=== PATIENT | female | born 1945 | race Caucasian/White ===

== ENCOUNTER 2020-12-22 08:10 | Outpatient (REF) | payer MEDICARE, OTHER, SELFPAY ==
--- NOTE | ~2020-12-22 | MM_ITS ---
EXAMINATION: MM SCREENING DIGITAL BREAST TOMOSYNTHESIS, BILATERAL CLINICAL INFORMATION: Screening. Asymptomatic. The lifetime risk of breast cancer based on the Tyrer-Cuzick Model is 2%. COMPARISON: Mammography: 03/18/2014. TECHNIQUE: Digital breast tomosynthesis is performed in both the craniocaudal and mediolateral oblique views along with computer-aided detection (CAD). Synthesized 2D images are generated from the tomosynthesis. Additional exaggerated right CC view is provided. FINDINGS: The breasts are heterogeneously dense, which may obscure small masses (ACR BI-RADS breast composition Category c). Parenchymal pattern is similar to prior study. There is no interval mass or architectural abnormality. The axilla and skin contours are unremarkable. There are scattered bilateral benign round calcifications including grouped benign round calcifications again seen retroareolar right breast. There are interval increased regional linear calcifications anterior upper outer left breast, suspect early ductal secretory. Patient will be recalled to further characterize with magnification views. MM/MM tomosynthesis screening BI IMPRESSION: 1. Left: Regional linear calcifications anterior upper outer quadrant, likely benign early ductal secretory. 2. Right: No mammographic evidence of malignancy. ASSESSMENT: BI-RADS 0: Incomplete - Need Additional Imaging Evaluation RECOMMENDATION: 1. Additional views of the left breast (magnification CC, magnification ML). 2. Radiology department staff will contact the patient for additional imaging. This patient's information was entered into a reminder system with a target due date for their next mammogram.
--- NOTE | ~2020-12-22 | MM_ITS ---
EXAMINATION: BONE DENSITOMETRY CLINICAL INDICATION: Screening for osteoporosis. COMPARISON: Baseline BD dated 03/18/2014. TECHNIQUE: Using a VividCortex DXA System (software version: 13.1) manufactured by [employer], dual-energy x-ray absorptiometry was performed of the lumbar spine and left hip. The images are of good technical quality. Summary results are attached. FINDINGS: AP SPINE L1-L2 (excluding L3 and L4): The data of L1-L4 has been changed to exclude the L3 and L4 vertebral bodies, because degenerative sclerosis at these levels may cause overestimation of lumbar spine density. Current: BMD 0.956 g/cm2, Z-score 0.2, T-score -1.7, osteopenia, 4.9% decrease from baseline (<5% change is not significant). Baseline: BMD 1.005 g/cm2. LEFT FEMUR, NECK: Current: BMD 0.759 g/cm2, Z-score 0.1, T-score -2.0, osteopenia. Baseline: BMD 0.805 g/cm2. LEFT FEMUR, TOTAL: Current: BMD 0.785 g/cm2, Z-score 0.2, T-score -1.8, osteopenia, 9.8% decrease from baseline (<5% change is not significant). Baseline: BMD 0.870 g/cm2. IDENTIFIED RISK FACTORS: Menopause, tobacco use (current smoker), history of fracture (adult). HISTORY OF FRACTURE: Wrist. MEDICATIONS: Calcium, vitamin D. MM/XR DEXA axial skeleton IMPRESSION: 1. DIAGNOSIS: Osteopenia based on the lowest T-score value of -2.0 in the femoral neck applying World Health Organization criteria. 2. 10-YEAR FRACTURE RISK PREDICTION, FRAX: Major osteoporotic fracture (clinical spine, forearm, hip or shoulder) 21.8%. Hip fracture 8.4%. 3. Treatment Recommendations: NOF guidelines recommend consideration for treatment in postmenopausal women and men age 50 and older presenting with the following: -A hip or vertebral (clinical or morphometric) fracture. -T-score less than or equal to -2.5 at the femoral neck or spine after appropriate evaluation to exclude secondary causes. -Low bone mass at the hip or spine and a 10-year fracture probability by FRAX of greater than or equal to 3% for hip fracture or greater than or equal to 20% for major osteoporotic fracture based on the [place] adapted WHO algorithm. 4. Other Recommendations: All treatment decisions require clinical judgment and consideration of individual patient factors, including patient preferences, comorbidities, previous drug use, risk factors not captured in the FRAX model (e.g. frailty, falls, vitamin D deficiency, increased bone turnover, interval significant decline in bone density) and possible under or overestimation of fracture risk by FRAX. Additional medical evaluation for secondary cause of low bone mineral density may be appropriate. FUTURE SCAN RECOMMENDATION: People with diagnosed cases of osteoporosis or at high risk for fracture should have regular bone mineral density tests. For patients eligible for Medicare, routine testing is allowed once every 2 years. The testing frequency can be increased to one year for patients who have rapidly progressing disease, those who are receiving or discontinuing medical therapy to restore bone mass, or have additional risk factors.
== END 2020-12-22 08:11 | disposition home or self-care (01) ==
LOC: HO.MAMMO 08:10
PROVIDERS: PCP Nurse Practitioner Family; Visit Provider Nurse Practitioner Family
DX: Z12.31 Encounter for screening mammogram for malignant neoplasm of breast (principal); Z13.820 Encounter for screening for osteoporosis; M85.80 Other specified disorders of bone density and structure, unspecified site; Z78.0 Asymptomatic menopausal state; F17.200 Nicotine dependence, unspecified, uncomplicated; Z87.81 Personal history of (healed) traumatic fracture; Z79.899 Other long term (current) drug therapy
CPT/HCPCS: 77063; 77067; 77080

== ENCOUNTER 2020-12-28 14:47 | Outpatient (REF) | payer MEDICARE, OTHER, SELFPAY ==
--- NOTE | ~2020-12-28 | MM_ITS ---
EXAMINATION: MM DIAGNOSTIC DIGITAL MAMMOGRAPHY, LEFT CLINICAL INFORMATION: Recall from screening for increased regional calcifications anterior upper outer left breast, possibly ductal secretory. COMPARISON: Mammography: 12/22/2020, 03/18/2014 TECHNIQUE: Digital mammography is performed in the following views: Magnification CC x2, magnification ML x2. FINDINGS: The breasts are heterogeneously dense, which may obscure small masses (ACR BI-RADS breast composition Category c). The additional views confirm scattered benign ductal secretory calcifications in the anterior upper outer left breast. There are other benign coarse round calcifications. No suspicious calcifications. Results are discussed with the patient at time of visit. MM/MM added views LT IMPRESSION: The additional views confirm incidental benign ductal secretory calcifications anterior upper outer left breast. ASSESSMENT: BI-RADS 2: Benign RECOMMENDATION: Routine annual mammography screening. This patient's information was entered into a reminder system with a target due date for their next mammogram.
== END 2020-12-28 14:48 | disposition home or self-care (01) ==
LOC: HO.MAMMO 14:47
PROVIDERS: Visit Provider Nurse Practitioner Family
DX: R92.1 Mammographic calcification found on diagnostic imaging of breast (principal)
CPT/HCPCS: 77065

== ENCOUNTER 2022-03-18 22:17 | Inpatient (IN) | payer MEDICARE, OTHER, SELFPAY ==
--- NOTE | ~2022-03-18 | XR_ITS ---
EXAMINATION: XR CHEST CLINICAL INFORMATION: Shortness of breath COMPARISON: Chest radiograph 01/31/2012 chest CTA 02/02/2012 TECHNIQUE: Frontal view of the chest was obtained. FINDINGS: Lungs are hyperinflated compatible with COPD. Bibasilar scarring/atelectasis is present. No gross consolidations. Heart size normal. No evidence of CHF. XR/XR chest 1V IMPRESSION: COPD. No acute intrathoracic disease.
[2022-03-18 22:19] VITALS: BP 176/92; BP 180/100; PULSE 120; RESP 35; O2SAT 80; O2SAT 92; BMI 23.8
--- NOTE | 2022-03-18 22:19 | ECG_ITS ---
Test Reason : SOB Blood Pressure : / mmHG Vent. Rate : 112 BPM Atrial Rate : 112 BPM P-R Int : 160 ms QRS Dur : 074 ms QT Int : 320 ms P-R-T Axes : 086 078 079 degrees QTc Int : 436 ms Sinus tachycardia Nonspecific ST abnormality Abnormal ECG When compared with ECG of 31-JAN-2012 17:10, No significant change was found Referred By: Frances Caban Electronically Signed By:Chip Norris
--- NOTE | 2022-03-18 22:26 | ED_ITS ---
HPI - SOB/Dyspnea General Chief Complaint: Dyspnea Stated Complaint: SOB Time Seen by Provider: 03/18/22 22:19 Source: patient and EMS Mode of arrival: EMS History of Present Illness HPI Narrative: 76-year-old female not known to this emergency room and does not provide majority of the history due to shortness of breath, EMS states that they were called for acute onset of shortness of breath and patient has a positive history of COPD. EMS states that they administered 2 albuterol, 125 mg of steroids, 4 mg Mag, 1 Atrovent EN route to the hospital while placing the patient on CPAP. Patient states that she feels better now than she did before. Related Data Home Medications Medication Instructions Recorded Confirmed budesonide 0.5 mg/2 mL suspension 1 vial inhalation BID 03/19/22 03/19/22 for nebulization budesonide-formoterol HFA 80 inhalation 03/19/22 mcg-4.5 mcg/actuation aerosol inhaler (Symbicort) chlorhexidine gluconate 0.12 % PO 03/19/22 mouthwash estradiol 0.01% (0.1 mg/gram) g vaginal 2XW 03/19/22 vaginal cream hydrocodone 5 mg-acetaminophen 325 1 tab PO Q6H PRN pain 03/19/22 03/19/22 mg tablet levalbuterol HCl 1.25 mg/0.5 mL 1 vial inhalation Q4-6H PRN 03/19/22 03/19/22 solution for nebulization Shortness Of Breath Or Wheezing multivitamin 03/19/22 umeclidinium 62.5 mcg/actuation 1 puff inhalation DAILY 03/19/22 03/19/22 blister powder for inhalation (Incruse Ellipta) Allergies Allergy/AdvReac Type Severity Reaction Status Date / Time NSAIDS (Non-Steroidal Allergy Intermediate ANGIOEDEMA; Verified 03/19/22 01:00 Anti-Inflamma DIARRHEA [NSAIDS] pollen extracts [POLLEN] Allergy Intermediate WATERY Verified 03/19/22 01:00 ITCHY EYES, NASAL CONGESTION ibuprofen Allergy Unknown Redness of Verified 03/19/22 01:00 Skin naproxen Allergy Unknown heart Verified 05/21/19 00:00 palpations Review of Systems Review of Systems: Pertinent positives and negatives as stated in HPI remaining ROS pending patient improvement. PMFSH Past Medical History Source: nursing notes reviewed Social History Social History Alcohol intake: current Alcohol intake frequency: holidays/special occasions only Alcohol type: wine Smoked in Last 30 Days: Yes Use of substances other than those prescribed or required for medical reasons: No Advance Directives: No Physical Exam Vital Signs: Vital Signs: Last Vital Signs Temp 97.9 F 03/19/22 01:57 Pulse 109 H 03/19/22 01:57 Resp 21 H 03/19/22 01:57 BP 113/69 03/19/22 01:57 Pulse Ox 96 03/19/22 01:57 O2 Del Method 03/19/22 01:57 O2 Flow Rate 3 03/19/22 01:57 BMI result Body Mass Index 23.8 VITAL SIGNS: Reviewed. GENERAL: Well developed, well nourished, in no acute distress. HEAD: Normocephalic/atraumatic, EYES: PERRLA, EOMI EARS: Ext canals without abnormality NOSE: Nares patent bilateral OROPHARYNX: no oral lesions noted, posterior pharynx clear NECK: Supple, no adenopathy LUNGS: Good inspiratory effort although decreased throughout with minimal expiratory wheeze, tachypnea is present as well as retractions and increased work of breathing. SpO2<92> BiPAP CARDIOVASCULAR: Regular rate and rhythm without noted murmurs, no JVD or lower extremity edema. ABDOMEN: Soft, non-tender, non-distended with bowel sounds. MUSCULOSKELETAL: No tenderness, deformities, or effusions noted on gross ins pection. EXTREMITIES: No cyanosis, clubbing or edema. SKIN: Inspection of the skin reveals no rashes NEUROLOGIC: Alert and oriented x 3. Strength and sensation to light touch were grossly intact x 4. Course Course Course Narrative: 0047: On re-evaluation VBG is demonstrated to show resolution acidosis, although pCO2 is noted to be somewhat increased however patient has received both fentanyl as well as Versed and respiratory rate is significantly improved as well as oxygenation. I have talked to the respiratory therapist who will begin titration off of BiPAP. Reevaluation(s) Reevaluation #1: Respiratory therapist comes to tell me that patient is telling her that what she experienced was in a allergic reaction to Advil that she took despite having a history of allergy to NSAIDs in the past. It is unclear why the patient decided to take the Advil knowing that she was allergic to it, she has significantly improved and I will order 25 mg of Benadryl for the patient as well. Time: 00:59 Reevaluation #2: Review of repeat VBG shows complete resolution improvement of pH as well as pCO2. Patient is oxygenating well on nasal cannula, remains mildly tachypneic and is significantly improved after Benadryl. Time: 02:26 Reevaluation #3: On re-evaluation, patient is still tachypneic, able to complete sentences at this time but noted to become short of breath. She is oxygenating well on nasal cannula and still has residual expiratory wheeze. There is no evidence of angioedema. Time: 02:30 Additional Reevaluation(s): 0245: I discussed the case with the inpatient hospitalist who accepts a dmission. Medication reconciliation has been completed. Medications Administered Discontinued Medications Generic Name Dose Route Start Last Admin Trade Name Freq PRN Reason Stop Dose Admin Albuterol Sulfate 7.5 mg/ 0 mg 03/18/22 22:19 03/18/22 22:43 Albuterol/Ipratropium 3 ml INHALE 03/18/22 22:20 10 each ONCE ONE Administration Albuterol Sulfate 7.5 mg/ 0 mg 03/18/22 22:48 03/18/22 23:01 Albuterol/Ipratropium 3 ml INHALE 03/18/22 22:49 10 each ONCE ONE Administration Diphenhydramine HCl 25 mg 03/19/22 00:58 03/19/22 01:05 Diphenhydramine Hcl 50 Mg/Ml Vial IVPUSH 03/19/22 00:59 25 mg ONCE ONE Administration Fentanyl 25 mcg 03/18/22 22:28 03/18/22 22:31 Fentanyl Citrate/Pf 100 Mcg/2 Ml Vial IVPUSH 03/18/22 22:29 25 mcg ONCE ONE Administration Protocol Piperacillin Sod/Tazobactam 50 mls @ 100 mls/hr 03/19/22 00:06 03/19/22 01:32 Sod 3.375 gm/ Sodium Chloride IV 03/19/22 00:35 Infused ONCE ONE Infusion Midazolam HCl 0.5 mg 03/18/22 22:48 03/18/22 23:04 Midazolam Hcl/Pf 2 Mg/2 Ml Vial IVPUSH 03/18/22 22:49 0.5 mg ONCE ONE Administration Medical Decision Making Medical Decision Making MDM Narrative: 76-year-old female with history and clinical presentation of acute respiratory failure and has communicated that there has been some improvement but otherwise will continue to provide respiratory support with 10 mg DuoNeb, BiPAP as well as basic lab work. Differential Diagnosis Acute respiratory failure secondary to viral infection and will rule out etiology of pneumonia/COPD. Admission/Observation Consideration of admission/observation: Escalation of care including admission/observation considered Will repeat VBG, oxygenation as well as respiratory rate have significantly improved and viral testing is otherwise negative. Although there is a noted leukocytosis this is likely reflective of the steroids the patient received EN route to the hospital. She is otherwise afebrile and findings are consistent with COPD. Lab Data Result Diagrams: 03/18/22 22:35 03/18/22 22:35 Labs: Lab Results 03/18/22 03/18/22 03/18/22 Range/Units 22:35 22:35 22:35 WBC 16.1 H (4.8-10.8) X10*3/uL RBC 4.66 (4.20-5.50) X10*6/uL Hgb 14.2 (12.0-16.0) g/dl Hct 42.9 (37.0-47.0) % MCV 92.1 (80.0-98.0) fL MCH 30.5 (27.0-33.0) pg MCHC 33.1 (31.0-35.0) g/dl RDW 14.1 (11.0-16.0) % Plt Count 321 (160-400) X10*3/uL MPV 10.0 (9.4-12.3) fL Immature Gran % (Auto) 0.4 (0.0-0.4) % Neut % (Auto) 58.8 (45-73) % Lymph % (Auto) 31.1 (20-40) % [place] % (Auto) 6.6 (2-11) % Eos % (Auto) 2.8 (0-4) % Baso % (Auto) 0.3 (0-2) % Lymph # (Auto) 5.0 H (1.2-4.9) X10*3/uL [place] # (Auto) 1.1 (0.1-1.2) X10*3/uL Eos # (Auto) 0.5 H (0.0-0.4) X10*3/uL Baso # (Auto) 0.1 (0.0-0.2) X10*3/uL Abs Immat Gran (auto) 0.06 H (0.00-0.03) X10*3/uL Absolute Neuts (auto) 9.5 H (2.0-8.3) x10*3/uL Absolute Nucleated RBC 0.000 (0.0-0.012) X10*3/uL Nucleated RBC % (auto) 0.0 (0.0-0.2) /100WBC Smear Tech's Comments VERIFIED PT 10.9 (10.0-13.1) SEC INR 1.0 (0.9-1.1) VBG pH (7.32-7.43) VBG pCO2 mmHg VBG pO2 mmHg VBG HCO3 (22-26) mmol/L VBG O2 Saturation % VBG Base Excess mmol/L Sodium 141 (135-145) mmol/L Potassium 4.4 (3.3-5.1) mmol/L Chloride 101 (96-108) mmol/L Carbon Dioxide 30 H (22-29) mmol/L Anion Gap 14 (12-20) BUN 17 H (9-16) mg/dL Creatinine 0.68 (0.5-1.4) mg/dL Estim Creat Clear Calc 54.7 Estimated GFR > 60 Random Glucose 205 H (60-115) mg/dL Lactic Acid (0.5-2.0) mmol/L Calcium 9.5 (8.4-10.2) mg/dL Total Bilirubin 0.4 (0.0-1.0) mg/dL AST 25 (5-31) U/L ALT 19 (0-31) U/L Alkaline Phosphatase 54 (39-117) U/L Troponin I High Sens (<3.5-17.0) ng/L C-Reactive Protein 0.17 (< or = 0.50) mg/dL Total Protein 6.5 (6.5-8.0) g/dL Albumin 4.1 (3.5-5.0) g/dL Procalcitonin ng/mL Influenza Type A (PCR) (Negative) Influenza Type B (PCR) (Negative) RSV RNA Qual (PCR) (Negative) SARS-CoV-2 RNA (RT-PCR) (Negative) 03/18/22 03/18/22 03/18/22 Range/Units 22:35 22:35 22:35 WBC (4.8-10.8) X10*3/uL RBC (4.20-5.50) X10*6/uL Hgb (12.0-16.0) g/dl Hct (37.0-47.0) % MCV (80.0-98.0) fL MCH (27.0-33.0) pg MCHC (31.0-35.0) g/dl RDW (11.0-16.0) % Plt Count (160-400) X10*3/uL MPV (9.4-12.3) fL Immature Gran % (Auto) (0.0-0.4) % Neut % (Auto) (45-73) % Lymph % (Auto) (20-40) % [place] % (Auto) (2-11) % Eos % (Auto) (0-4) % Baso % (Auto) (0-2) % Lymph # (Auto) (1.2-4.9) X10*3/uL [place] # (Auto) (0.1-1.2) X10*3/uL Eos # (Auto) (0.0-0.4) X10*3/uL Baso # (Auto) (0.0-0.2) X10*3/uL Abs Immat Gran (auto) (0.00-0.03) X10*3/uL Absolute Neuts (auto) (2.0-8.3) x10*3/uL Absolute Nucleated RBC (0.0-0.012) X10*3/uL Nucleated RBC % (auto) (0.0-0.2) /100WBC Smear Tech's Comments PT (10.0-13.1) SEC INR (0.9-1.1) VBG pH (7.32-7.43) VBG pCO2 mmHg VBG pO2 mmHg VBG HCO3 (22-26) mmol/L VBG O2 Saturation % VBG Base Excess mmol/L Sodium (135-145) mmol/L Potassium (3.3-5.1) mmol/L Chloride (96-108) mmol/L Carbon Dioxide (22-29) mmol/L Anion Gap (12-20) BUN (9-16) mg/dL Creatinine (0.5-1.4) mg/dL Estim Creat Clear Calc Estimated GFR Random Glucose (60-115) mg/dL Lactic Acid 1.0 (0.5-2.0) mmol/L Calcium (8.4-10.2) mg/dL Total Bilirubin (0.0-1.0) mg/dL AST (5-31) U/L ALT (0-31) U/L Alkaline Phosphatase (39-117) U/L Troponin I High Sens < 3.5 (<3.5-17.0) ng/L C-Reactive Protein (< or = 0.50) mg/dL Total Protein (6.5-8.0) g/dL Albumin (3.5-5.0) g/dL Procalcitonin 0.03 ng/mL Influenza Type A (PCR) (Negative) Influenza Type B (PCR) (Negative) RSV RNA Qual (PCR) (Negative) SARS-CoV-2 RNA (RT-PCR) (Negative) 03/18/22 03/18/22 03/19/22 Range/Units 22:36 22:43 00:12 WBC (4.8-10.8) X10*3/uL RBC (4.20-5.50) X10*6/uL Hgb (12.0-16.0) g/dl Hct (37.0-47.0) % MCV (80.0-98.0) fL MCH (27.0-33.0) pg MCHC (31.0-35.0) g/dl RDW (11.0-16.0) % Plt Count (160-400) X10*3/uL MPV (9.4-12.3) fL Immature Gran % (Auto) (0.0-0.4) % Neut % (Auto) (45-73) % Lymph % (Auto) (20-40) % [place] % (Auto) (2-11) % Eos % (Auto) (0-4) % Baso % (Auto) (0-2) % Lymph # (Auto) (1.2-4.9) X10*3/uL [place] # (Auto) (0.1-1.2) X10*3/uL Eos # (Auto) (0.0-0.4) X10*3/uL Baso # (Auto) (0.0-0.2) X10*3/uL Abs Immat Gran (auto) (0.00-0.03) X10*3/uL Absolute Neuts (auto) (2.0-8.3) x10*3/uL Absolute Nucleated RBC (0.0-0.012) X10*3/uL Nucleated RBC % (auto) (0.0-0.2) /100WBC Smear Tech's Comments PT (10.0-13.1) SEC INR (0.9-1.1) VBG pH 7.28 L 7.33 (7.32-7.43) VBG pCO2 64 72 mmHg VBG pO2 72 68 mmHg VBG HCO3 30 H 38 H (22-26) mmol/L VBG O2 Saturation 92.0 91.0 % VBG Base Excess 2.3 10.0 mmol/L Sodium (135-145) mmol/L Potassium (3.3-5.1) mmol/L Chloride (96-108) mmol/L Carbon Dioxide (22-29) mmol/L Anion Gap (12-20) BUN (9-16) mg/dL Creatinine (0.5-1.4) mg/dL Estim Creat Clear Calc Estimated GFR Random Glucose (60-115) mg/dL Lactic Acid (0.5-2.0) mmol/L Calcium (8.4-10.2) mg/dL Total Bilirubin (0.0-1.0) mg/dL AST (5-31) U/L ALT (0-31) U/L Alkaline Phosphatase (39-117) U/L Troponin I High Sens (<3.5-17.0) ng/L C-Reactive Protein (< or = 0.50) mg/dL Total Protein (6.5-8.0) g/dL Albumin (3.5-5.0) g/dL Procalcitonin ng/mL Influenza Type A (PCR) NEGATIVE (Negative) Influenza Type B (PCR) NEGATIVE (Negative) RSV RNA Qual (PCR) NEGATIVE (Negative) SARS-CoV-2 RNA (RT-PCR) NEGATIVE (Negative) 03/19/22 Range/Units 01:59 WBC (4.8-10.8) X10*3/uL RBC (4.20-5.50) X10*6/uL Hgb (12.0-16.0) g/dl Hct (37.0-47.0) % MCV (80.0-98.0) fL MCH (27.0-33.0) pg MCHC (31.0-35.0) g/dl RDW (11.0-16.0) % Plt Count (160-400) X10*3/uL MPV (9.4-12.3) fL Immature Gran % (Auto) (0.0-0.4) % Neut % (Auto) (45-73) % Lymph % (Auto) (20-40) % [place] % (Auto) (2-11) % Eos % (Auto) (0-4) % Baso % (Auto) (0-2) % Lymph # (Auto) (1.2-4.9) X10*3/uL [place] # (Auto) (0.1-1.2) X10*3/uL Eos # (Auto) (0.0-0.4) X10*3/uL Baso # (Auto) (0.0-0.2) X10*3/uL Abs Immat Gran (auto) (0.00-0.03) X10*3/uL Absolute Neuts (auto) (2.0-8.3) x10*3/uL Absolute Nucleated RBC (0.0-0.012) X10*3/uL Nucleated RBC % (auto) (0.0-0.2) /100WBC Smear Tech's Comments PT (10.0-13.1) SEC INR (0.9-1.1) VBG pH 7.39 (7.32-7.43) VBG pCO2 40 mmHg VBG pO2 71 mmHg VBG HCO3 24 (22-26) mmol/L VBG O2 Saturation 94.0 % VBG Base Excess -0.3 mmol/L Sodium (135-145) mmol/L Potassium (3.3-5.1) mmol/L Chloride (96-108) mmol/L Carbon Dioxide (22-29) mmol/L Anion Gap (12-20) BUN (9-16) mg/dL Creatinine (0.5-1.4) mg/dL Estim Creat Clear Calc Estimated GFR Random Glucose (60-115) mg/dL Lactic Acid (0.5-2.0) mmol/L Calcium (8.4-10.2) mg/dL Total Bilirubin (0.0-1.0) mg/dL AST (5-31) U/L ALT (0-31) U/L Alkaline Phosphatase (39-117) U/L Troponin I High Sens (<3.5-17.0) ng/L C-Reactive Protein (< or = 0.50) mg/dL Total Protein (6.5-8.0) g/dL Albumin (3.5-5.0) g/dL Procalcitonin ng/mL Influenza Type A (PCR) (Negative) Influenza Type B (PCR) (Negative) RSV RNA Qual (PCR) (Negative) SARS-CoV-2 RNA (RT-PCR) (Negative) Independent Interpretation I performed an independent interpretation of an: EKG Interpretation: Sinus tachycardia, HR-112, no STEMI, DE/QRS/QTC are within normal limits. Critical Care Time Critical Care Time Critical Care Time: Yes Total Critical Care Time: 45 Attestation: I personally attest to this time spent taking care of the patient. Discharge Plan Discharge Clinical Impression: Acute exacerbation of chronic obstructive pulmonary disease, Allergic reaction Patient Disposition: Admitted As Inpatient
--- NOTE | 2022-03-18 22:30 | PC.NURSE ---
PT A&Ox3, called EMS for SOB, PT placed on Cpap by EMS. LS wheezing. Respiratory at beside.
[2022-03-18 22:31] VITALS: RESP 30
[2022-03-18] MEDS: fentaNYL citrate/PF 100 MCG/2 ML VIAL 25 MCG IVPUSH (22:31)
[2022-03-18 22:43] LABS: Basophils Absolute Auto 0.1 X10*3/uL (0.0-0.2); Basophils Percent Auto 0.3 % (0-2); Eosinophils Absolute Auto 0.5 X10*3/uL (0.0-0.4); Eosinophils Percent Auto 2.8 % (0-4); Hematocrit 42.9 % (37.0-47.0); Hemoglobin 14.2 g/dl (12.0-16.0); Imm Gran Abs Auto 0.06 X10*3/uL (0.00-0.03); Imm Gran Pct Auto 0.4 % (0.0-0.4); Lymphocytes Percent Auto 31.1 % (20-40); MANUAL DIFF FLAG SCAN; Mean Corpuscular HGB Conc 33.1 g/dl (31.0-35.0); Mean Corpuscular Hemoglobin 30.5 pg (27.0-33.0); Mean Corpuscular Volume 92.1 fL (80.0-98.0); Monocytes Absolute Auto 1.1 X10*3/uL (0.1-1.2); Monocytes Percent Auto 6.6 % (2-11); Neutrophils Absolute Auto 9.5 x10*3/uL (2.0-8.3); Neutrophils Percent Auto 58.8 % (45-73); Platelet Count 321 X10*3/uL (160-400); Red Blood Count 4.66 X10*6/uL (4.20-5.50); Red Cell Distribution Width 14.1 % (11.0-16.0); SCAN SMEAR FLAG 1; White Blood Count 16.1 X10*3/uL (4.8-10.8)
[2022-03-18] MEDS: Albuterol Sulfate 7.5 MG, Albuterol/Iprat 2.5/0.5MG 3 ML 3 ML INHALE ×2 (22:43→23:01)
[2022-03-18 22:45] LABS: SLIDE REVIEW VERIFIED
[2022-03-18 22:49] VITALS: PULSE 112; RESP 28; O2SAT 94
[2022-03-18 22:49] LABS: Prothrombin Time 10.9 SEC (10.0-13.1)
[2022-03-18 22:50] LABS: VBG Base Excess 2.3 mmol/L; VBG HCO3 30 mmol/L (22-26); VBG pCO2 64 mmHg; VBG pH 7.28 (7.32-7.43); VBG pO2 72 mmHg
[2022-03-18 22:51] LABS: Venous Blood Gas Refer to POC result
[2022-03-18 22:55] VITALS: PULSE 112; RESP 114; O2SAT 94
[2022-03-18 23:02] VITALS: PULSE 115; RESP 28; O2SAT 93
[2022-03-18 23:04] LABS: Alanine Aminotransferase 19 U/L (0-31); Albumin Level 4.1 g/dL (3.5-5.0); Alkaline Phosphatase 54 U/L (39-117); Anion Gap 14 (12-20); Aspartate Amino Transferase 25 U/L (5-31); Bilirubin Total 0.4 mg/dL (0.0-1.0); Blood Urea Nitrogen 17 mg/dL (9-16); Calcium 9.5 mg/dL (8.4-10.2); Carbon Dioxide 30 mmol/L (22-29); Chloride 101 mmol/L (96-108); Creatinine Clr Calc Pharmacy 54.7; Estimated Glomerular Filt Rate > 60; Glucose Random 205 mg/dL (60-115); Potassium 4.4 mmol/L (3.3-5.1); Sodium 141 mmol/L (135-145); Total Protein 6.5 g/dL (6.5-8.0)
[2022-03-18] MEDS: Midazolam HCl/PF 2 MG/2 ML VIAL 0.5 MG IVPUSH (23:04)
[2022-03-18 23:12] LABS: Troponin-I High Sensitivity < 3.5 ng/L (<3.5-17.0)
[2022-03-18 23:15] VITALS: BP 157/81; PULSE 117; RESP 23; O2SAT 95
[2022-03-18 23:30] LABS: Influenza A PCR NEGATIVE (Negative); Influenza B PCR NEGATIVE (Negative); Resp Syncy Virus RNA Qual PCR NEGATIVE (Negative); SARS COV2 PCR INHOUSE NEGATIVE (Negative)
[2022-03-18 23:44] LABS: C Reactive Protein 0.17 mg/dL (< or = 0.50)
[2022-03-19] VITALS (11 sets, daily range): BP systolic 111–126; BP diastolic 66–72; PULSE 90–119; RESP 16–30; TEMP 36.4–37.2; O2SAT 91–99
[2022-03-19 00:13] LABS: Procalcitonin 0.03 ng/mL
[2022-03-19 00:21] LABS: Venous Blood Gas Refer to POC result
[2022-03-19 00:22] LABS: VBG HCO3 38 mmol/L (22-26); VBG pCO2 72 mmHg; VBG pH 7.33 (7.32-7.43); VBG pO2 68 mmHg
[2022-03-19] MEDS: Piperacillin Sodium/Tazobactam 3.375 GM in 0.9 % Sodium Chloride 50 ML IV (01:01)
[2022-03-19] MEDS: diphenhydrAMINE HCL 50 MG/ML VIAL 25 MG IVPUSH (01:05)
--- NOTE | 2022-03-19 01:25 | PC.NURSE ---
PT denies any pain, meds given as documented. Respiratory at bedside. Switched over from Cpap to 3L NC, o2 sat 97%.
[2022-03-19 02:05] LABS: VBG Base Excess -0.3 mmol/L; VBG HCO3 24 mmol/L (22-26); VBG pCO2 40 mmHg; VBG pH 7.39 (7.32-7.43); VBG pO2 71 mmHg
[2022-03-19 02:05] LABS: Venous Blood Gas Refer to POC result
--- NOTE | 2022-03-19 03:14 | PC.NURSE ---
PT resting quietly, currently on 3L via NC, o2 sat 96%. Per provider, ween off o2 and keep between 89-91%. PT o2 currently 91% on RA.
--- NOTE | 2022-03-19 03:20 | PM.IMHP ---
History of Present Illness Date of Service: 03/19/22 Chief Complaint: sob 76F pmh COPD, presented with sob. patient states she was feeling well on AM of presentation. she had dental procedure and then took NSAID for pain. she has history of allergic reactions to NSAIDs. she reports after taking pill she began to feel short of breath and wheezy. denies chest pain, fever, chills, rash, abd pain, diarrhea, swelling. she called EMS, found to be wheezing and hypoxic. in ED abg with ph 7.28, [id number], po2 72. was placed on bipap and improved. Review of Systems Review of Systems: Constitutional: Denies fever, denies Chills Eyes: denies blurry vision ENT: denies sore throat CVS: denies chest pain Respiratory: dyspnea GI: no abdominal pain : denies dysuria MSK: denies neck pain Skin: denies rash Neuro: denies specific motor weakness Psych: denies suicidal ideation Endocrine: denies heat/cold intolerance Hematologic: denies easy bleeding Allergy: denies hives [facility] Medical History COPD (chronic obstructive pulmonary disease) Family History Father COPD (chronic obstructive pulmonary disease) Surgical History S/P cholecystectomy Social History Alcohol intake: current Alcohol intake frequency: holidays/special occasions only Alcohol type: wine Smoked in Last 30 Days: Yes Use of substances other than those prescribed or required for medical reasons: No Advance Directives: No Meds Allergies Allergy/AdvReac Type Severity Reaction Status Date / Time NSAIDS (Non-Steroidal Allergy Intermediate ANGIOEDEMA; Verified 03/19/22 01:00 Anti-Inflamma DIARRHEA [NSAIDS] pollen extracts [POLLEN] Allergy Intermediate WATERY Verified 03/19/22 01:00 ITCHY EYES, NASAL CONGESTION ibuprofen Allergy Unknown Redness of Verified 03/19/22 01:00 Skin naproxen Allergy Unknown heart Verified 05/21/19 00:00 palpations Active Medications: Current Medications Albuterol/Ipratropium (Albuterol/Iprat 2.5/0.5mg 3 Ml Ampul.Neb) 3 ml INHALE RQ4H PRN PRN Reason: sob Methylprednisolone Sodium Succinate (Methylprednisolone Sod Succ 40 Mg/Ml Vial) 40 mg IVPUSH Q12H [facility] Home Medications Medication Instructions Recorded Confirmed Last Taken Type budesonide 0.5 mg/2 mL suspension 1 vial inhalation BID 03/19/22 03/19/22 Unknown History for nebulization budesonide-formoterol HFA 80 inhalation 03/19/22 Unknown History mcg-4.5 mcg/actuation aerosol inhaler (Symbicort) chlorhexidine gluconate 0.12 % PO 03/19/22 Unknown History mouthwash estradiol 0.01% (0.1 mg/gram) g vaginal 2XW 03/19/22 Unknown History vaginal cream hydrocodone 5 mg-acetaminophen 325 1 tab PO Q6H PRN pain 03/19/22 03/19/22 Unknown History mg tablet levalbuterol HCl 1.25 mg/0.5 mL 1 vial inhalation Q4-6H PRN 03/19/22 03/19/22 Unknown History solution for nebulization Shortness Of Breath Or Wheezing multivitamin 03/19/22 Unknown History umeclidinium 62.5 mcg/actuation 1 puff inhalation DAILY 03/19/22 03/19/22 Unknown History blister powder for inhalation (Incruse Ellipta) Physical Exam Vital Signs and Narrative: Vital Signs: Last Vital Signs Temp 97.9 F 03/19/22 01:57 Pulse 103 H 03/19/22 03:18 Resp 18 03/19/22 03:18 BP 113/69 03/19/22 01:57 Pulse Ox 91 L 03/19/22 03:18 O2 Del Method 03/19/22 03:18 O2 Flow Rate 3 03/19/22 01:57 BMI result Body Mass Index 23.8 General: dyspneic HEENT: atraumatic Neck: normal to visual inspection CVS: S1, S2, RRR Resp: diminished bilateral Chest: non tender GI: soft, non tender, non distended : no CVA tenderness Skin: no rashes Extremities: no edema Neuro: Oriented X3, grossly intact Psych: cooperative Results Labs CBC and Chem 7: 03/18/22 22:35 03/18/22 22:35 Labs: Laboratory Results - last 24 hr 03/18/22 03/18/2203/18/22 22:35 22:35 22:35 MCV 92.1 MCH 30.5 MCHC 33.1 RDW 14.1 Plt Count 321 MPV 10.0 Immature Gran % (Auto) 0.4 Neut % (Auto) 58.8 Lymph % (Auto) 31.1 [place] % (Auto) 6.6 Eos % (Auto) 2.8 Baso % (Auto) 0.3 Lymph # (Auto) 5.0 H [place] # (Auto) 1.1 Eos # (Auto) 0.5 H Baso # (Auto) 0.1 Abs Immat Gran (auto) 0.06 H Absolute Neuts (auto) 9.5 H Absolute Nucleated RBC 0.000 Nucleated RBC % (auto) 0.0 Smear Tech's Comments VERIFIED PT 10.9 INR 1.0 VBG pH VBG pCO2 VBG pO2 VBG HCO3 VBG O2 Saturation VBG Base Excess Anion Gap 14 Estim Creat Clear Calc 54.7 Estimated GFR > 60 Random Glucose 205 H Lactic Acid Calcium 9.5 Total Bilirubin 0.4 AST 25 ALT 19 Alkaline Phosphatase 54 Troponin I High Sens C-Reactive Protein 0.17 Total Protein 6.5 Albumin 4.1 Procalcitonin Influenza Type A (PCR) Influenza Type B (PCR) RSV RNA Qual (PCR) SARS-CoV-2 RNA (RT-PCR) 03/18/22 03/18/22 03/18/22 22:35 22:35 22:35 MCV MCH MCHC RDW Plt Count MPV Immature Gran % (Auto) Neut % (Auto) Lymph % (Auto) [place] % (Auto) Eos % (Auto) Baso % (Auto) Lymph # (Auto) [place] # (Auto) Eos # (Auto) Baso # (Auto) Abs Immat Gran (auto) Absolute Neuts (auto) Absolute Nucleated RBC Nucleated RBC % (auto) Smear Tech's Comments PT INR VBG pH VBG pCO2 VBG pO2 VBG HCO3 VBG O2 Saturation VBG Base Excess Anion Gap Estim Creat Clear Calc Estimated GFR Random Glucose Lactic Acid 1.0 Calcium Total Bilirubin AST ALT Alkaline Phosphatase Troponin I High Sens < 3.5 C-Reactive Protein Total Protein Albumin Procalcitonin 0.03 Influenza Type A (PCR) Influenza Type B (PCR) RSV RNA Qual (PCR) SARS-CoV-2 RNA (RT-PCR) 03/18/22 03/18/22 03/19/22 22:36 22:43 00:12 MCV MCH MCHC RDW Plt Count MPV Immature Gran % (Auto) Neut % (Auto) Lymph % (Auto) [place] % (Auto) Eos % (Auto) Baso % (Auto) Lymph # (Auto) [place] # (Auto) Eos # (Auto) Baso # (Auto) Abs Immat Gran (auto) Absolute Neuts (auto) Absolute Nucleated RBC Nucleated RBC % (auto) Smear Tech's Comments PT INR VBG pH 7.28 L 7.33 VBG pCO2 64 72 VBG pO2 72 68 VBG HCO3 30 H 38 H VBG O2 Saturation 92.0 91.0 VBG Base Excess 2.3 10.0 Anion Gap Estim Creat Clear Calc Estimated GFR Random Glucose Lactic Acid Calcium Total Bilirubin AST ALT Alkaline Phosphatase Troponin I High Sens C-Reactive Protein Total Protein Albumin Procalcitonin Influenza Type A (PCR) NEGATIVE Influenza Type B (PCR) NEGATIVE RSV RNA Qual (PCR) NEGATIVE SARS-CoV-2 RNA (RT-PCR) NEGATIVE 03/19/22 01:59 MCV MCH MCHC RDW Plt Count MPV Immature Gran % (Auto) Neut % (Auto) Lymph % (Auto) [place] % (Auto) Eos % (Auto) Baso % (Auto) Lymph # (Auto) [place] # (Auto) Eos # (Auto) Baso # (Auto) Abs Immat Gran (auto) Absolute Neuts (auto) Absolute Nucleated RBC Nucleated RBC % (auto) Smear Tech's Comments PT INR VBG pH 7.39 VBG pCO2 40 VBG pO2 71 VBG HCO3 24 VBG O2 Saturation 94.0 VBG Base Excess -0.3 Anion Gap Estim Creat Clear Calc Estimated GFR Random Glucose Lactic Acid Calcium Total Bilirubin AST ALT Alkaline Phosphatase Troponin I High Sens C-Reactive Protein Total Protein Albumin Procalcitonin Influenza Type A (PCR) Influenza Type B (PCR) RSV RNA Qual (PCR) SARS-CoV-2 RNA (RT-PCR) Imaging Radiologist's Impressions: Impressions Chest X-Ray 03/18/22 23:05 IMPRESSION: COPD. No acute intrathoracic disease. Assessment and Plan (1) COPD (chronic obstructive pulmonary disease): Status: Acute Plan 76F with pmh copd presented with sob. acute hypoxic and hypercapneic respiratory failure due to copd with acute decompensation possibly due to allergic reaction to NSAID wean o2 for goal o2sat 91-94% steroids, nebs smoking cessation dvt prophylaxis - lovenox DNR/DNI patient with significant hypercapneica and hypoxia that required bipap in ED, at risk for further decompensation due to severity of presenting signs and symptoms, therefore, expected to require atleast 2 midnights in hospital inpatient. Time Spent With Patient Time: Total time managing care of this patient today ____ minutes. Quality Stroke Does the patient have a stroke diagnosis?: No VTE Prior VTE?: No VTE Risk Level:: Medical - moderate - high VTE Device Contraindication: Treatment Not Indicated VTE Drug Contraindication: N/A - Med Ordered
[2022-03-19] MEDS: Famotidine/PF 20 MG/2 ML VIAL IVPUSH (03:37)
[2022-03-19] MEDS: methylPREDNISolone Sod Succ 40 MG/ML VIAL IVPUSH (03:40)
[2022-03-19 05:29] LABS: Appearance Urine Clear; Color Urine Yellow; Glucose Urine UA 100 mg/dL (Negative); Leukocyte Esterase Urine Negative (Negative); Nitrite Urine Negative (Negative); Specific Gravity - Urine >= 1.030 (1.005-1.025); UMIC TRIGGER UACC YES; Urine Blood Negative (Negative); Urine Ketones Negative (Negative); Urine Protein 30 (1+) mg/dL (Neg-Trace)
[2022-03-19 05:36] LABS: Bacteria Urine None Seen (None Seen); Hyaline Casts Urine 0-2 /LPF (0-2); RBC Urine 0-2 /HPF (0-2); WBC Urine 0-5 /HPF (0-5)
[2022-03-19] MEDS: 0.9 % Sodium Chloride Flush 3 ML SYRINGE IVFLUSH (07:45)
--- NOTE | 2022-03-19 08:07 | PHA.MEDREC ---
Pharmacy Consult ? Medication Reconciliation Pharmacy has completed the medication reconciliation.
--- NOTE | 2022-03-19 08:16 | PC.NURSE ---
pt up to ambulate to bathroom, steady gait. taken pt off nasal cannula, SaO2 remains steady at 96%
--- NOTE | 2022-03-19 10:02 | PM.EVENT ---
Event Note Date of Service: 03/19/22 Event Note: Day Team follow up Pt seen and examined this AM. No wheezing on exam and tolerating room air. Feeling much better. States her symptoms started after taking ibuprofen which she is allergic to. States she feels at baseline and hoping for discharge home today. D/w that given her presentation, it may be more prudent to stay over night. However, she requesting discharge. We agreed that I will come evaluate her this afternoon and if she remains stable, would consider d/c this afternoon. For now, continue with iv steroids and updrafts. Time Spent With Patient Time: Total time managing care of this patient today ____ minutes.
[2022-03-19] MEDS: Albuterol/Iprat 2.5/0.5MG 3 ML AMPUL.NEB INHALE (11:24)
--- NOTE | 2022-03-19 12:38 | MHC.CM.PN ---
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 Home/self care is the goal and CM has initiated and will follow for dc planning. Patient has received Pfizer/CovV-Key vax [id number] and her PCP is Dr. Nila Ocasio.
--- NOTE | 2022-03-19 12:54 | PC.NURSE ---
ambulated to and from restroom w smooth steady gait on ra. took call from family friend, met with provider at bedside. serene.
--- NOTE | 2022-03-19 13:28 | PM.DS ---
DS: Providers Provider Date of Service: 03/19/22 Date of admission: 03/19/22 03:19 Primary care physician: Unknown Physician DS: Diagnosis Discharge Diagnosis (1) COPD (chronic obstructive pulmonary disease): Status: Acute (2) Acute respiratory failure with hypoxia and hypercapnia: Status: Acute DS: Summary Hospital Course Hospital Course: HPI From admission H&P: 76F pmh COPD, presented with sob. patient states she was feeling well on AM of presentation. she had dental procedure and then took NSAID for pain. she has history of allergic reactions to NSAIDs. she reports after taking pill she began to feel short of breath and wheezy. denies chest pain, fever, chills, rash, abd pain, diarrhea, swelling. she called EMS, found to be wheezing and hypoxic. in ED abg with ph 7.28, [id number], po2 72. was placed on bipap and improved. Hospital Course: Patient was treated with bipap + steroids + updrafts in the ED. She improved quickly and was weaned from bipap to nasal cannula and eventually to room air. She was continued on scheduled + PRN bronchodilators + systemic steroids. Pt had improvement faster than initially expected. She was advised, that given the severity of her presentation it may be best for her to remain hospitalized for an additional night, however, at her insistence (for discharge home) a joint decision was made to discharge her. She has been advised on complete tobacco cessation as well has to not use any NSAIDS. She will be d/c on 4 more days of prednisone and is to continue her other baseline COPD meds. Time Spent with Patient Time attestation: Total time managing care of this patient today ____ minutes. Discharge coordination time: Greater than 30 minutes Quality: Safe Use of Opioids Does Pt have an Active Cancer Diagnosis on the Problem List?: No Quality: Stroke Does the patient have a stroke diagnosis?: No Physical Exam Vital Signs: Vital Signs: Last Vital Signs Temp 98.9 F 03/19/22 12:28 Pulse 97 03/19/22 12:28 Resp 16 03/19/22 12:28 BP 116/66 03/19/22 12:28 Pulse Ox 93 03/19/22 12:28 O2 Del Method 03/19/22 12:28 O2 Flow Rate 1 03/19/22 03:32 BMI result Body Mass Index 23.8 Const: Other: General - no acute distress, appears comfortable Cardiovascular - regular rate and rhythm, S1-S2 Lungs - normal respiratory effort, clear to auscultation bilaterally, no wheezing; ambulating on the unit multiple times without any respiratory distress or hypoxia Abdomen - soft, nontender, no rebound or guarding Extremities - no edema bilaterally Neuro - awake and alert, no focal deficits DS: Data Data Completed and Pending Labs on day of discharge: Laboratory Results - last 24 hr 03/18/22 03/18/22 03/18/22 22:35 22:35 22:35 WBC 16.1 H RBC 4.66 Hgb 14.2 Hct 42.9 MCV 92.1 MCH 30.5 MCHC 33.1 RDW 14.1 Plt Count 321 MPV 10.0 Immature Gran % (Auto) 0.4 Neut % (Auto) 58.8 Lymph % (Auto) 31.1 [place] % (Auto) 6.6 Eos % (Auto) 2.8 Baso % (Auto) 0.3 Lymph # (Auto) 5.0 H [place] # (Auto) 1.1 Eos # (Auto) 0.5 H Baso # (Auto) 0.1 Abs Immat Gran (auto) 0.06 H Absolute Neuts (auto) 9.5 H Absolute Nucleated RBC 0.000 Nucleated RBC % (auto) 0.0 Smear Tech's Comments VERIFIED PT 10.9 INR 1.0 VBG pH VBG pCO2 VBG pO2 VBG HCO3 VBG O2 Saturation VBG Base Excess Sodium 141 Potassium 4.4 Chloride 101 Carbon Dioxide 30 H Anion Gap 14 BUN 17 H Creatinine 0.68 Estim Creat Clear Calc 54.7 Estimated GFR > 60 Random Glucose 205 H Lactic Acid Calcium 9.5 Total Bilirubin 0.4 AST 25 ALT 19 Alkaline Phosphatase 54 Troponin I High Sens C-Reactive Protein 0.17 Total Protein 6.5 Albumin 4.1 Procalcitonin Urine Color Urine Appearance Urine pH Ur Specific [place] Urine Protein Urine Glucose (UA) Urine Ketones Urine Blood Urine Nitrite Ur Leukocyte Esterase Urine RBC Urine WBC Ur Squamous Epith Cells Urine Bacteria Hyaline Casts Influenza Type A (PCR) Influenza Type B (PCR) RSV RNA Qual (PCR) SARS-CoV-2 RNA (RT-PCR) 03/18/22 03/18/22 03/18/22 22:35 22:35 22:35 WBC RBC Hgb Hct MCV MCH MCHC RDW Plt Count MPV Immature Gran % (Auto) Neut % (Auto) Lymph % (Auto) [place] % (Auto) Eos % (Auto) Baso % (Auto) Lymph # (Auto) [place] # (Auto) Eos # (Auto) Baso # (Auto) Abs Immat Gran (auto) Absolute Neuts (auto) Absolute Nucleated RBC Nucleated RBC % (auto) Smear Tech's Comments PT INR VBG pH VBG pCO2 VBG pO2 VBG HCO3 VBG O2 Saturation VBG Base Excess Sodium Potassium Chloride Carbon Dioxide Anion Gap BUN Creatinine Estim Creat Clear Calc Estimated GFR Random Glucose Lactic Acid 1.0 Calcium Total Bilirubin AST ALT Alkaline Phosphatase Troponin I High Sens < 3.5 C-Reactive Protein Total Protein Albumin Procalcitonin 0.03 Urine Color Urine Appearance Urine pH Ur Specific [place] Urine Protein Urine Glucose (UA) Urine Ketones Urine Blood Urine Nitrite Ur Leukocyte Esterase Urine RBC Urine WBC Ur Squamous Epith Cells Urine Bacteria Hyaline Casts Influenza Type A (PCR) Influenza Type B (PCR) RSV RNA Qual (PCR) SARS-CoV-2 RNA (RT-PCR) 03/18/22 03/18/22 03/19/22 22:36 22:43 00:12 WBC RBC Hgb Hct MCV MCH MCHC RDW Plt Count MPV Immature Gran % (Auto) Neut % (Auto) Lymph % (Auto) [place] % (Auto) Eos % (Auto) Baso % (Auto) Lymph # (Auto) [place] # (Auto) Eos # (Auto) Baso # (Auto) Abs Immat Gran (auto) Absolute Neuts (auto) Absolute Nucleated RBC Nucleated RBC % (auto) Smear Tech's Comments PT INR VBG pH 7.28 L 7.33 VBG pCO2 64 72 VBG pO2 72 68 VBG HCO3 30 H 38 H VBG O2 Saturation 92.0 91.0 VBG Base Excess 2.3 10.0 Sodium Potassium Chloride Carbon Dioxide Anion Gap BUN Creatinine Estim Creat Clear Calc Estimated GFR Random Glucose Lactic Acid Calcium Total Bilirubin AST ALT Alkaline Phosphatase Troponin I High Sens C-Reactive Protein Total Protein Albumin Procalcitonin Urine Color Urine Appearance Urine pH Ur Specific [place] Urine Protein Urine Glucose (UA) Urine Ketones Urine Blood Urine Nitrite Ur Leukocyte Esterase Urine RBC Urine WBC Ur Squamous Epith Cells Urine Bacteria Hyaline Casts Influenza Type A (PCR) NEGATIVE Influenza Type B (PCR) NEGATIVE RSV RNA Qual (PCR) NEGATIVE SARS-CoV-2 RNA (RT-PCR) NEGATIVE 03/19/22 03/19/22 01:59 05:23 WBC RBC Hgb Hct MCV MCH MCHC RDW Plt Count MPV Immature Gran % (Auto) Neut % (Auto) Lymph % (Auto) [place] % (Auto) Eos % (Auto) Baso % (Auto) Lymph # (Auto) [place] # (Auto) Eos # (Auto) Baso # (Auto) Abs Immat Gran (auto) Absolute Neuts (auto) Absolute Nucleated RBC Nucleated RBC % (auto) Smear Tech's Comments PT INR VBG pH 7.39 VBG pCO2 40 VBG pO2 71 VBG HCO3 24 VBG O2 Saturation 94.0 VBG Base Excess -0.3 Sodium Potassium Chloride Carbon Dioxide Anion Gap BUN Creatinine Estim Creat Clear Calc Estimated GFR Random Glucose Lactic Acid Calcium Total Bilirubin AST ALT Alkaline Phosphatase Troponin I High Sens C-Reactive Protein Total Protein Albumin Procalcitonin Urine Color Yellow Urine Appearance Clear Urine pH 5.0 Ur Specific [place] >= 1.030 H Urine Protein 30 (1+) H Urine Glucose (UA) 100 H Urine Ketones Negative Urine Blood Negative Urine Nitrite Negative Ur Leukocyte Esterase Negative Urine RBC 0-2 Urine WBC 0-5 Ur Squamous Epith Cells 3-5 Urine Bacteria None Seen Hyaline Casts 0-2 Influenza Type A (PCR) Influenza Type B (PCR) RSV RNA Qual (PCR) SARS-CoV-2 RNA (RT-PCR) Discharge Plan Discharge Anticipated Discharge Date/Time: 03/19/22 13:24 Patient Disposition: Home, Self-Care Discharge Diagnosis: COPD, Possible allergic reaction Referrals: Physician,Unknown J [Primary Care Provider] - 1 Week Discharge Medications: New prednisone 20 mg tablet 40 mg PO DAILY Qty: 8 0RF Continued hydrocodone-acetaminophen 5-325 mg tablet 1 tab PO Q6H PRN (Reason: pain) budesonide 0.5 mg/2 mL suspension for nebulization 1 vial inhalation BID Rx Instructions: uses nasally levalbuterol HCl 1.25 mg/0.5 mL solution for nebulization 1 vial inhalation Q4-6H PRN (Reason: Shortness Of Breath Or Wheezing) chlorhexidine gluconate 0.12 % mouthwash 15 ml PO BID Rx Instructions: *swish and spit* budesonide-formoterol [Symbicort] 80-4.5 mcg/actuation HFA aerosol inhaler 2 puff inhalation BID Incruse Ellipta 62.5 mcg/actuation blister with device 1 puff inhalation DAILY estradiol 0.01 % (0.1 mg/gram) cream 1 g vaginal TU tolterodine 4 mg capsule,extended release 24hr 1 cap PO DAILY fluoxetine 10 mg capsule 2 cap PO DAILY multivitamin Tablet 1 tab PO DAILY amoxicillin 500 mg capsule 1 cap PO TID Discharge Orders: Discharge Order (Routine); Ordered 03/19/22 Ordered By: Ham Montoya Diet: Advance to usual diet Activity on Discharge: As tolerated Stand Alone Forms: Patient Portal Discharge page Care Plan Goals: To stay healthy and out of the hospital. Health Concerns: You respiratory symptoms may have been caused by taking NSAIDS (Ibuprofen, Advil, Motrin, Naproxen, etc). DO NOT TAKE NSAIDS. Before taking any over the counter medications, check the label to make sure it is not an NSAID. You can take tylenol for your tooth ache. Take prednisone for 4 more days. Take your inhalers / nebulizers as you were doing before. Plan of Treatment: See above Assessment: see d/c summary
--- NOTE | 2022-03-19 13:30 | MHC.CM.PN ---
Patient has been medically cleared for dc to home today, self care.
== END 2022-03-19 14:20 | disposition home or self-care (01) | DRG 190 ==
LOC: HO.ED 03-19 02:29 → HO.EDOVER 03-19 03:27 → HO.S3 03-19 12:49 → HO.EDOVER 03-19 13:09
PROVIDERS: Admitting Provider Internal Medicine; Emergency Provider Student in an Organized Health Care Education/Training Program; Visit Provider Family Medicine
DX: J44.1 Chronic obstructive pulmonary disease with (acute) exacerbation (principal); J96.01 Acute respiratory failure with hypoxia; J96.02 Acute respiratory failure with hypercapnia; Z66 Do not resuscitate; T39.315A Adverse effect of propionic acid derivatives, initial encounter; Z20.822 Contact with and (suspected) exposure to COVID-19; Z88.6 Allergy status to analgesic agent; Z79.899 Other long term (current) drug therapy
CPT/HCPCS: 0241U; 36415; 71045; 80053; 81001; 82803; 83605; 84145; 84484; 85025; 85610; 86140; 87040; 93005; 94640; 94660; 99285; J1200; J2250; J2543; J2920; J3010